=== PATIENT | male | born 1950 | race African-American/Black ===

== ENCOUNTER 2017-01-03 05:42 | Inpatient (IN) | payer MEDICARE, BC ==
[~2017-01-03] VITALS: Ht 177.8 cm; Wt 103.1 kg
[~2017-01-03 05:42] MED LIST: ALLO300T PO; ESZO3TAB28 PO; HYDR2TAB29 PO; IRBE300T40 PO; METF500T4 PO; METHYLFOLATE
[2017-01-03] MEDS ORDERED: LIDOCAINE 1%, 2ML ONE (06:03)
[2017-01-03] MEDS ORDERED: ROPIvacaine/PF 0.5%, 30 ML ONE (06:26)
[2017-01-03] MEDS ORDERED: LACTATED RINGERS 1,000 ML IV SCH (06:29)
[2017-01-03] MEDS ORDERED: LIDOCAINE 1%, 2ML SQ PRN (06:30)
[2017-01-03] MEDS ORDERED: [UNRECOGNIZED DRUG - OTHER] PO (06:33)
[2017-01-03 06:40] VITALS: BP 164/100
[2017-01-03] MEDS ORDERED: PROPOFOL 10 MG/ML, 20ML ONE (06:55)
[2017-01-03] MEDS ORDERED: ONDANSETRON 2MG/ML, 2ML ONE (06:55)
[2017-01-03] MEDS ORDERED: CEFAZOLIN 1,000 MG ONE (06:55)
[2017-01-03] MEDS ORDERED: DEXAMETHASONE 4 MG/ML, 5ML ONE (06:55)
[2017-01-03] MEDS ORDERED: ROCURONIUM 10 MG/ML ONE (06:55)
[2017-01-03] MEDS ORDERED: VANCOMYCIN 1,000 MG ONE (06:55)
[2017-01-03] MEDS ORDERED: ACETAMINOPHEN 325 MG TABLET PO PRN ×2 (07:00→10:00)
[2017-01-03] MEDS ORDERED: KETOROLAC 30 MG/1 ML IV SCH (07:00)
[2017-01-03] MEDS ORDERED: VANCOMYCIN PER PHARMACY MC PRN (07:00)
[2017-01-03] MEDS ORDERED: SENNA/DOCUSATE TABLET PO PRN (07:00)
[2017-01-03] MEDS: HYDROmorphone 2MG TABLET PO SCH ×5 (07:00→22:26)
[2017-01-03] MEDS ORDERED: BISACODYL 10 MG SUPP PR PRN (07:00)
[2017-01-03] MEDS ORDERED: HYDROmorphone 1 MG/ML, 1ML IM PRN (07:00)
[2017-01-03] MEDS ORDERED: VANCOMYCIN 1,500 MG in SODIUM CHLORIDE 0.9% 250 ML IV ONE (07:00)
[2017-01-03] MEDS ORDERED: MAGNESIUM HYDROXIDE 8%, 30ML UDC PO PRN (07:00)
[2017-01-03] MEDS: CEFAZOLIN PMX 2GM/50ML 50 ML IVPB SCH ×3 (07:00→22:26)
[2017-01-03] MEDS ORDERED: ONDANSETRON 2MG/ML, 2ML IV PRN (07:00)
[2017-01-03] MEDS ORDERED: DIPHENHYDRAMINE 25 MG CAPSULE PO PRN (07:00)
[2017-01-03] MEDS ORDERED: MEPERIDINE/PF 25MG/0.5ML ONE (09:14)
[2017-01-03] MEDS ORDERED: MEPERIDINE/PF 25MG/0.5ML IVPush PRN ×2 (09:30→10:00)
[2017-01-03] MEDS ORDERED: KETOROLAC 30 MG/1 ML ONE (09:51)
[2017-01-03] MEDS ORDERED: morphine SULFATE 10 MG/ML, 1ML IV PRN (10:00)
[2017-01-03] MEDS ORDERED: ONDANSETRON 2MG/ML, 2ML IVPush PRN (10:00)
[2017-01-03] MEDS ORDERED: FENTANYL PF 100 MCG/2ML IV PRN (10:00)
[2017-01-03] MEDS ORDERED: OXYcodone 5 MG/5 ML ORAL.SOL UDC PO PRN (10:00)
[2017-01-03] MEDS ORDERED: hydrALAzine 20 MG/ML, 1ML IV PRN (10:00)
[2017-01-03] MEDS ORDERED: LABETALOL 5MG/ML, 20ML IV PRN (10:00)
[2017-01-03 10:25] VITALS: BP 150/86
[2017-01-03] MEDS: SODIUM CHLORIDE 0.9% 1,000 ML IV SCH ×2 (11:12→18:18)
[2017-01-03] MEDS: metFORMIN 500 MG TABLET PO SCH ×2 (11:49→21:02)
[2017-01-03] MEDS: ALLOPURINOL 300 MG TABLET PO SCH (11:49)
[2017-01-03] MEDS: IRBESARTAN 300 MG TABLET PO SCH (11:49)
[2017-01-03] MEDS: DOCUSATE 100 MG CAPSULE PO SCH ×3 (11:56→21:00)
[2017-01-03 14:52] VITALS: BP 151/87
[2017-01-03] MEDS: KETOROLAC 30 MG/1 ML IV SCH (18:19)
[2017-01-03 19:37] VITALS: BP 154/90
[2017-01-03 23:44] VITALS: BP 156/78
[2017-01-04] MEDS: KETOROLAC 30 MG/1 ML IV SCH (02:23)
[2017-01-04] MEDS: HYDROmorphone 2MG TABLET PO SCH ×4 (02:23→10:25)
[2017-01-04] MEDS: SODIUM CHLORIDE 0.9% 1,000 ML IV SCH (02:44)
[2017-01-04] MEDS ORDERED: IBUPROFEN 800 MG TABLET PO PRN (03:00)
[2017-01-04 03:54] VITALS: BP 149/76
[2017-01-04] MEDS: metFORMIN 500 MG TABLET PO SCH (08:23)
[2017-01-04] MEDS: IRBESARTAN 300 MG TABLET PO SCH (08:23)
[2017-01-04] MEDS: DOCUSATE 100 MG CAPSULE PO SCH (08:23)
[2017-01-04] MEDS: ALLOPURINOL 300 MG TABLET PO SCH (08:23)
[2017-01-04 08:28] VITALS: BP 143/67
[2017-01-04 12:57] VITALS: BP 139/75
[2017-01-04] MEDS ORDERED: PNEUMOCOCCAL 23 VACCINE IM-VACC ONE (13:00)
== END 2017-01-04 13:23 | disposition home or self-care (01) | DRG 483 ==
LOC: ORIP 05:42 → 4NOR 10:17
PROVIDERS: ADMIT Orthopaedic Surgery; ATTEND Orthopaedic Surgery
PROC: 0LS30ZZ Reposition Right Upper Arm Tendon, Open Approach (ICD-10-PCS; 2017-01-03)
PROC: 0RRJ0JZ Replacement of Right Shoulder Joint with Synthetic Substitute, Open Approach (ICD-10-PCS; principal; 2017-01-03 07:00)
DX: M19.011 Primary osteoarthritis, right shoulder (principal); M75.21 Bicipital tendinitis, right shoulder; Z88.8 Allergy status to other drugs, medicaments and biological substances; Z91.09 Other allergy status, other than to drugs and biological substances; Z90.49 Acquired absence of other specified parts of digestive tract; Z23 Encounter for immunization
CPT/HCPCS: 82962; 87081; 87147; 90732; C1713; C1776; J0690; J1100; J1885; J2175; J2405; J2704; J2795; J3370; J3490; J7120

== ENCOUNTER → 2018-08-10 | Outpatient (CLI) | payer MEDICARE, BC ==
[~2018-08-10] MED LIST changes: +METF500T17 PO; -METF500T4 PO; +MULT1TAB60 PO; +[UNRECOGNIZED DRUG - OTHER] PO
[2018-08-10 10:09] LABS: CHLORIDE 105 mmol/L (98-107)
[2018-08-10 10:20] LABS: ALANINE AMINOTRANSFERASE 56 U/L (12-78); ALBUMIN 4.1 g/dL (3.4-5.0); ALKALINE PHOSPHATASE 69 U/L (45-117); ANION GAP 5 mmol/L (5-15); BILIRUBIN,TOTAL 0.7 mg/dL (0.2-1.0); CALCIUM 9.4 mg/dL (8.5-10.1); CREATININE 1.12 mg/dL (0.7-1.3); TOTAL PROTEIN 8.4 g/dL (6.4-8.2)
== END | disposition home or self-care (01) ==
LOC: STAR 08:25
PROVIDERS: ATTEND Orthopaedic Surgery
DX: Z01.818 Encounter for other preprocedural examination (principal); M25.512 Pain in left shoulder; M54.12 Radiculopathy, cervical region; M19.012 Primary osteoarthritis, left shoulder; I25.2 Old myocardial infarction; Z96.611 Presence of right artificial shoulder joint
CPT/HCPCS: 36415; 80053; 87081; 87147; 93005

== ENCOUNTER 2018-08-16 05:37 | Inpatient (IN) | payer MEDICARE, BC ==
[~2018-08-16] VITALS: Ht 180.3 cm; Wt 95.5 kg
[2018-08-16] MEDS ORDERED: LACTATED RINGERS 1,000 ML IV SCH (06:12)
[2018-08-16 06:14] VITALS: BP 163/96
[2018-08-16] MEDS ORDERED: FENTANYL PF 250 MCG/5ML ONE (06:27)
[2018-08-16] MEDS ORDERED: MIDAZOLAM 1 MG/ML, 2ML ONE (06:27)
[2018-08-16] MEDS ORDERED: D5%-0.45% NACL 1,000 ML IV SCH (06:46)
[2018-08-16] MEDS ORDERED: OXYcodone IR 5MG TABLET PO ONE (07:00)
[2018-08-16] MEDS ORDERED: ONDANSETRON 2MG/ML, 2ML IV PRN ×2 (07:00→08:00)
[2018-08-16] MEDS ORDERED: HYDROmorphone 1 MG/ML, 1ML INJ IV PRN (07:00)
[2018-08-16] MEDS ORDERED: GABAPENTIN 300 MG CAPSULE PO ONE (07:00)
[2018-08-16] MEDS ORDERED: CEFAZOLIN PMX 2GM/50ML 50 ML IVPB SCH (07:00)
[2018-08-16] MEDS ORDERED: ACETAMINOPHEN 325 MG TABLET PO PRN (07:00)
[2018-08-16] MEDS ORDERED: SENNA/DOCUSATE TABLET PO PRN (07:00)
[2018-08-16] MEDS ORDERED: ACETAMINOPHEN 500 MG TABLET PO ONE (07:00)
[2018-08-16] MEDS ORDERED: BISACODYL 10 MG SUPP PR PRN (07:00)
[2018-08-16] MEDS ORDERED: MAGNESIUM HYDROXIDE 8%, 30ML UDC PO PRN (07:00)
[2018-08-16] MEDS ORDERED: MEPERIDINE/PF 25MG/0.5ML IVPush PRN (08:00)
[2018-08-16] MEDS ORDERED: HYDROmorphone 2 MG/ML, 1ML IVPush PRN (08:00)
[2018-08-16] MEDS ORDERED: OXYcodone 5 MG/5 ML ORAL.SOL UDC PO PRN (08:00)
[2018-08-16] MEDS ORDERED: IRBESARTAN 300 MG TABLET PO SCH (09:00)
[2018-08-16] MEDS ORDERED: ALLOPURINOL 300 MG TABLET PO SCH (09:00)
[2018-08-16] MEDS ORDERED: DOCUSATE 100 MG CAPSULE PO SCH (09:00)
[2018-08-16] MEDS ORDERED: FENTANYL PF 100 MCG/2ML ONE (09:09)
[2018-08-16] MEDS: FENTANYL PF 100 MCG/2ML IV PRN ×3 (09:10→09:20)
[2018-08-16] MEDS ORDERED: KETOROLAC 30 MG/1 ML ONE (09:16)
[2018-08-16] MEDS ORDERED: KETOROLAC 30 MG/1 ML IVPush ONE (09:30)
[2018-08-16] MEDS: HYDROmorphone 2MG TABLET PO SCH ×3 (10:49→12:24)
[2018-08-16] MEDS ORDERED: IBUPROFEN 800 MG TABLET ONE (11:43)
[2018-08-16] MEDS: IBUPROFEN 800 MG TABLET PO SCH (11:49)
[2018-08-16] MEDS ORDERED: PROPOFOL 10 MG/ML, 20ML ONE (15:19)
[2018-08-16] MEDS ORDERED: DEXAMETHASONE 4 MG/ML, 5ML ONE (15:19)
[2018-08-16] MEDS ORDERED: ROCURONIUM 10MG/ML,5ML ONE (15:19)
[2018-08-16] MEDS ORDERED: ONDANSETRON 2MG/ML, 2ML ONE (15:19)
[2018-08-16] MEDS ORDERED: CEFAZOLIN 1,000 MG ONE (15:19)
== END 2018-08-16 12:00 | disposition home or self-care (01) | DRG 483 ==
LOC: ORIP 05:37 → 4NOR 11:42
PROVIDERS: ADMIT Orthopaedic Surgery; ATTEND Orthopaedic Surgery
PROC: 0LS40ZZ Reposition Left Upper Arm Tendon, Open Approach (ICD-10-PCS; 2018-08-16)
PROC: 3E0T3BZ Introduction of Anesthetic Agent into Peripheral Nerves and Plexi, Percutaneous Approach (ICD-10-PCS; 2018-08-16)
PROC: 0RRK0JZ Replacement of Left Shoulder Joint with Synthetic Substitute, Open Approach (ICD-10-PCS; principal; 2018-08-16 07:00)
DX: M19.012 Primary osteoarthritis, left shoulder (principal); I10 Essential (primary) hypertension; M10.9 Gout, unspecified; M65.9 Synovitis and tenosynovitis, unspecified; Z88.3 Allergy status to other anti-infective agents; Z91.048 Other nonmedicinal substance allergy status
CPT/HCPCS: C1713; C1776; G0378; J0690; J1100; J1885; J2250; J2405; J2704; J3010; J7120

== ENCOUNTER 2018-11-21 07:06 | Outpatient (CLI) | payer MEDICARE, BC | END 2018-11-21 23:59 | disposition home or self-care (01) | LOC: CVU 07:06 → CFH 23:59 | PROVIDERS: ATTEND Family Medicine | DX: R42 Dizziness and giddiness (principal); J34.89 Other specified disorders of nose and nasal sinuses; E11.9 Type 2 diabetes mellitus without complications; E78.5 Hyperlipidemia, unspecified; G47.30 Sleep apnea, unspecified; M10.9 Gout, unspecified | CPT/HCPCS: 0399T; 70450; 93306 ==

== ENCOUNTER 2020-07-28 10:12 | Outpatient (CLI) | payer MEDICARE, OTHER ==
[~2020-07-28 10:12] MED LIST changes: +MULT-449 PO; -MULT1TAB60 PO
== END 2020-07-28 23:59 | disposition home or self-care (01) ==
LOC: CFH 10:12
PROVIDERS: ATTEND Internal Medicine Cardiovascular Disease
DX: I25.10 Atherosclerotic heart disease of native coronary artery without angina pectoris (principal); I10 Essential (primary) hypertension; R06.02 Shortness of breath; E11.65 Type 2 diabetes mellitus with hyperglycemia
CPT/HCPCS: 75571

== ENCOUNTER 2020-08-05 07:53 | Outpatient (CLI) | payer MEDICARE, OTHER | END 2020-08-05 23:59 | disposition home or self-care (01) | LOC: CVU 07:53 | PROVIDERS: ATTEND Internal Medicine Cardiovascular Disease | DX: I08.8 Other rheumatic multiple valve diseases (principal); I11.9 Hypertensive heart disease without heart failure; Z87.19 Personal history of other diseases of the digestive system | CPT/HCPCS: 93306; 93356; 93880 ==